=== PATIENT | male | born 1940 | race Caucasian/White ===

== ENCOUNTER → 2019-12-09 | Outpatient (CLI) | payer MEDICARE, OTHER ==
--- NOTE | 2019-12-11 01:53 | MR ---
EXAMINATION TYPE: MR lumbar spine wo con DATE OF EXAM: 12/09/2019 COMPARISON: None HISTORY: Chronic low back pain Multiplanar multiecho imaging of the lumbar spine was performed with no contrast. Lumbar vertebra have normal alignment. There is narrowing of disc spaces throughout the lumbar spine. There is no compression fracture. I see no focal bone destruction. There is Schmorl node in the supe rior endplate of L4 and inferior endplate of L2. There is no spinal stenosis. There is minimal gambling supervisor ior disc bulging at L3-4. The neuroforamina are fairly well-maintained for the patient's age. The sac roiliac joints are intact. There is no compression fracture. There is no lumbar paraspinal mass. I se e no evidence of spinal stenosis. IMPRESSION: Mild multilevel spondylotic changes for the patient's age. No fracture. No spinal stenosis.
== END | disposition home or self-care (01) ==
LOC: RADMRIMAIN 14:01
PROVIDERS: ATTEND Family Medicine
DX: M47.896 Other spondylosis, lumbar region (principal)
CPT/HCPCS: 72148